=== PATIENT | male | born 1985 | race African-American/Black ===

== ENCOUNTER 2019-05-17 18:59 | Emergency (ER) | payer OTHER ==
[~2019-05-17] VITALS: Ht 185.4 cm; Wt 108.9 kg
[2019-05-17 19:08] VITALS: BP 128/75
--- NOTE | 2019-05-17 19:08 | NUR ---
ED Nurse Note: PT WALKED IN C/O LAC ON LEFT ANKLE POSTERIOR, PT STATES HE ACCIDENTALLY CUT HIMSELF WHILE CLOSING THE [place] DOOR. NOTED LAC ON POSTERIOR ANKLE AREA, SMALL BLEEDING, CMS INTACT, WILL CONT MONITOR.
[2019-05-17] MEDS ORDERED: Lidocaine 1% Plain 30 ml INJ ONE (19:30)
[2019-05-17] MEDS ORDERED: Bacitracin Oint UD TOPIC ONE (20:30)
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
[2019-05-17] MEDS ORDERED: CEPHALEXIN500 MG ORAL (20:35)
[2019-05-17] MEDS ORDERED: IBU800 MG PO (20:35)
--- NOTE | 2019-05-17 20:35 | NUR ---
ED Nurse Note: PROVIDER COMPLETED SUTURES AND DERMABOND TO AREA, PT TOLERATED WELL, CLEAN DRY DRESSING APPLIED AFTER WITH BACITRACIN OINTMENT, PT NOW BEING D/C TO HOME, GIVEN F/U INFO, AFTER CARE INSTRUCTIONS AND VERBALIZES PROPER MEDIOCATION ADMINISTRATION, ARMBAND REMOVED, NAD NOTED DURING D/C TO HOME.
[2019-05-17 21:05] VITALS: BP 128/75
== END 2019-05-17 20:45 | disposition home or self-care (01) ==
LOC: EMR 19:25
DX: S91.011A Laceration without foreign body, right ankle, initial encounter (principal); X58.XXXA Exposure to other specified factors, initial encounter; Y92.9 Unspecified place or not applicable
CPT/HCPCS: 12001; 73610; 99283; J2001; Z7502